=== PATIENT | female | born 1950 | race Caucasian/White ===

== ENCOUNTER 2023-07-01 20:57 | Emergency (ER) | payer MEDICARE ==
[2023-07-02] MEDS ORDERED: AMOXICILLIN500 MG PO (01:41)
[2023-07-02] MEDS ORDERED: ULTRAM50 MG PO (01:41)
[2023-07-02 01:49] VITALS: BP 154/68
== END 2023-07-02 01:55 | disposition home or self-care (01) ==
LOC: ED 20:57
DX: S00.31XA Abrasion of nose, initial encounter (principal); S50.811A Abrasion of right forearm, initial encounter; I10 Essential (primary) hypertension; E78.5 Hyperlipidemia, unspecified; F17.200 Nicotine dependence, unspecified, uncomplicated; W01.0XXA Fall on same level from slipping, tripping and stumbling without subsequent striking against object, initial encounter; Y92.009 Unspecified place in unspecified non-institutional (private) residence as the place of occurrence of the external cause

== ENCOUNTER 2023-11-13 06:42 | Day surgery (SDC) | payer MEDICARE ==
[~2023-11-13] VITALS: Ht 157.5 cm; Wt 74.4 kg
[~2023-11-13 06:42] MED LIST: AMOXICILLIN500 MG PO; COZAAR50 MG PO; CRESTOR40 MG PO; PROTONIX40 M2 PO; ULTRAM50 MG PO
[2023-11-13] MEDS ORDERED: ASPIRIN LOW81 M1 PO (07:11)
[2023-11-13 09:29] VITALS: BP 139/97
== END 2023-11-13 09:47 | disposition home or self-care (01) ==
LOC: ENDO 06:42 → ORM 08:00 → ENDO 08:25
PROVIDERS: ATTEND Internal Medicine Gastroenterology
PROC: 0DJD8ZZ Inspection of Lower Intestinal Tract, Via Natural or Artificial Opening Endoscopic (ICD-10-PCS; principal; 2023-11-13)
DX: Z12.11 Encounter for screening for malignant neoplasm of colon (principal); K64.8 Other hemorrhoids; Z86.010 Personal history of colon polyps